=== PATIENT | female | born 1950 | race Caucasian/White ===

== ENCOUNTER 2016-10-31 20:22 | Emergency (ER) | payer OTHER ==
[2016-10-31 20:49] VITALS: BP 138/83
[2016-10-31] MEDS ORDERED: DOXYcycline CAP(*) 100 MG PO ONE (20:59)
[2016-10-31] MEDS ORDERED: Tetan/Diph/Pertus SYR(Tdap)* 0.5 ML SYR(BOOSTRIX) use SYR IM ONE (20:59)
--- NOTE | 2016-10-31 21:09 | UC ---
Bite Injury/Animal HPI - HPI Summary HPI Summary: PT WAS BRINGING NEIGHBOURS DOG BACK TO THE NEIGHBOURS HOUSE AFTER TAKING HIM FOR A WALK AROUND 3:15PM TODAY WHEN THE NEIGHBOURS CAT LUNGED AT HER LEG AND BIT HER. UNPROVOKED ATTACK. THIS CAT HAS BEEN KNOWN TO BITE WITHOUT PROVOCATION. UNKNOWN VACCINATION STATUS. LAST TETANUS MAYBE AROUND 2007 BUT NOT SURE. - History of Current Complaint Chief Complaint: UCBiteInjury Stated Complaint: CAT BITE Time Seen by Provider: 10/31/16 20:31 Hx Obtained From: Patient Severity Currently: Mild Severity Initially: Mild Pain Intensity: 0 Pain Scale Used: 0-10 Numeric Onset/Duration: Sudden Onset, Lasting Hours, Still Present Type of Bite: Animal Has Animal Been Immunized?: Unknown Character: Puncture Aggravating Factor(s): Nothing Alleviating Factor(s): Nothing Associated Signs And Symptoms: Positive: Negative Hx of Bite: Unprovoked Animal Available for Observation: Yes Animal Control Notified: Yes - Allergies/Home Medications Allergies/Adverse Reactions: Allergies Allergy/AdvReac Type Severity Reaction Status Date / Time Sulfa Drugs Allergy Severe See Comment Verified 10/31/16 20:37 Amoxicillin Allergy Intermediate Rash Verified 10/31/16 20:37 Lamotrigine [From Lamictal] Allergy Intermediate Unknown Verified 10/31/16 20:37 Reaction Details Oxycodone [From Percocet] Allergy Intermediate Rash Verified 10/31/16 20:37 Risperidone [From Risperdal] Allergy Intermediate Unknown Verified 10/31/16 20: 37 Reaction Details Topiramate [From Topamax] Allergy Intermediate Nausea Verified 10/31/16 20:37 Nitrofurantoin Allergy Abdominal Verified 10/31/16 20:37 [From Macrobid] Pain Scopolamine Allergy Unknown Verified 10/31/16 20:37 Reaction Details PMH/Surg Hx/FS Hx/Imm Hx Endocrine History Of: Reports: Thyroid Disease, Hypothyroidism Denies: Diabetes Cardiovascular History Of: Reports: Cardiac Disorders - leaky valve and murmur Denies: Hypertension Respiratory History Of: Reports: Asthma - NO current meds, Bronchitis - Hx OF YEARS AGO Denies: COPD GI/ History Of: Denies: Ulcer Neurological History Of: Reports: Seizures - 2009, WAS EVALUATED , NO SEIZURES, Sx R/T EAR PROBLEM, Migraine - Hx OF 1-2 PER YR, USES OTC Psychological History Of: Reports: Anxiety, Depression Cancer History Of: Denies: Breast Cancer - Surgical History Surgical History: Yes Surgery Procedure, Year, and Place: 2008 Hysterectomy. Graves Disease. 1996 Thyroidectomy - Family History Known Family History: Positive: Hypertension - Social History Alcohol Use: None Substance Use Type: None Smoking Status (MU): Never Smoked Tobacco Have You Smoked in the Last Year: No - Immunization History Most Recent Tetanus Shot: Pt unsure Review of Systems Constitutional: Negative Skin: Other - CAT BITE LEFT LEG Respiratory: Negative Cardiovascular: Negative Gastrointestinal: Negative All Other Systems Reviewed And Are Negative: Yes Physical Exam Triage Information Reviewed: Yes Appearance: Well-Appearing, No Pain Distress, Well-Nourished Vital Signs: Initial Vital Signs Temp 99.5 F 10/31/16 20:40 Pulse 74 10/31/16 20:40 Resp 16 10/31/16 20:40 BP 138/83 10/31/16 20:40 Pulse Ox 98 10/31/16 20:40 Vital Signs Reviewed: Yes Eyes: Positive: Conjunctiva Clear ENT: Positive: Hearing grossly normal Neck: Positive: Supple Respiratory: Positive: No respiratory distress, No accessory muscle use Cardiovascular: Positive: Pulses Normal Abdomen Description: Positive: Soft Musculoskeletal: Positive: No Edema Neurological: Positive: Alert Psychological: Positive: Age Appropriate Behavior Skin: Negative: rashes Bite Injury Course/Dx - Differential Dx/Diagnosis Provider Diagnoses: 1. CAT BITE - LEFT LEG. 2. TDAP BOOSTER Discharge - Discharge Plan Condition: Stable Disposition: HOME Prescriptions: Doxycycline (Monohydrate) [Doxycycline Monohydrate] 1 cap PO BID #19 cap Patient Education Materials: Animal Bite (ED) Referrals: Dheeraj Alejandra MD [Primary Care Provider] - If Needed Additional Instructions: THE HEALTH DEPARTMENT WILL FOLLOW-UP ON VACCINATION STATUS OF THE ANIMAL AND ADVISE ON IF RABIES VACCINATION IS WARRANTED.
== END 2016-10-31 21:15 | disposition home or self-care (01) ==
LOC: UCEAST 20:22
DX: S81.852A Open bite, left lower leg, initial encounter (principal); W55.01XA Bitten by cat, initial encounter; Z88.3 Allergy status to other anti-infective agents; Z88.5 Allergy status to narcotic agent; Z88.2 Allergy status to sulfonamides; E03.9 Hypothyroidism, unspecified; R01.1 Cardiac murmur, unspecified; R56.9 Unspecified convulsions; F41.9 Anxiety disorder, unspecified; F32.9 Major depressive disorder, single episode, unspecified; J45.909 Unspecified asthma, uncomplicated
CPT/HCPCS: 90471; 90715; 99212; A9270-GY; G0463

== ENCOUNTER 2017-04-23 05:34 | Emergency (ER) | payer OTHER ==
[2017-04-23 06:45] LABS: Hematocrit 40 % (35-47); Hemoglobin 13.3 g/dl (12.0-16.0); Mean Corpuscular HGB Conc 34 g/dl (31-36); Mean Corpuscular Hemoglobin 31 pg (27-31); Mean Corpuscular Volume 93 fL (80-97); Mean Platelet Volume 9 um3 (7.4-10.4); Red Blood Count 4.29 10^6/ul (4.0-5.4); Red Cell Distribution Width 13 % (10.5-15); White Blood Count 6.4 10^3/ul (3.5-10.8)
--- NOTE | 2017-04-23 07:00 | ED ---
Janel Salinas Edward, scribed for Marcela Benítez MD on 04/23/17 at 0548 . Palpitations / Dysrhythmia - HPI Summary HPI Summary: 66 y/o female presents to the ED c/o palpitations characterized as pounding for the past day or two. The pt was unable to sleep due to the palpitations last night. The symptoms are not alleviated by anything. Pt states she has had constant anxiety for the past 3-4 weeks. Denies CP, N/V, diaphoresis. Non smoker , no EtOH. - History of Current Complaint Chief Complaint: EDDysrhythmPalp Hx Obtained From: Patient Onset/Duration: Lasting Days Character: Pounding Aggravating: Other - anxiety Alleviating: Nothing Associated Signs & Symptoms: Negative - Allergy/Home Medications Allergies/Adverse Reactions: Allergies Allergy/AdvReac Type Severity Reaction Status Date / Time Sulfa Drugs Allergy Severe See Comment Verified 04/23/17 05:41 Amoxicillin Allergy Intermediate Rash Verified 04/23/17 05:41 Lamotrigine [From Lamictal] Allergy Intermediate Unknown Verified 04/23/17 05:41 Reaction Details Oxycodone [From Percocet] Allergy Intermediate Rash Verified 04/23/17 05:41 Risperidone [From Risperdal] Allergy Intermediate Unknown Verified 04/23/17 05: 41 Reaction Details Topiramate [From Topamax] Allergy Intermediate Nausea Verified 04/23/17 05:41 Nitrofurantoin Allergy Abdominal Verified 04/23/17 05:41 [From Macrobid] Pain Scopolamine Allergy Unknown Verified 04/23/17 05:41 Reaction Details PMH/Surg Hx/FS Hx/Imm Hx Previously Healthy: No Endocrine/Hematology History: Reports: Hx Thyroid Disease Denies: Hx Diabetes Cardiovascular History: Reports: Hx Valvular Heart Disease - WAS EVALUATED, STATES MINIMAL Denies: Hx Hypertension Respiratory History: Reports: Hx Asthma - NO current meds, Hx Sleep Apnea - Cpap user; compliant Denies: Hx Chronic Obstructive Pulmonary Disease (COPD) GI History: Reports: Hx Gastroesophageal Reflux Disease - NO MEDS, WATCHES DIET , Hx Hiatal Hernia - NO MEDS Denies: Hx Ulcer History: Reports: Hx Kidney Infection - Hx OF 1980s Musculoskeletal History: Reports: Hx Tendonitis - ELBOW Denies: Hx Rheumatoid Arthritis, Hx Osteoporosis Comment Only: Hx Arthritis - OSTEOARTHRITIS Sensory History: Reports: Hx Cataracts - LEFT EYE Opthamlomology History: Reports: Hx Cataracts - LEFT EYE Neurological History: Reports: Hx Migraine - Hx OF 1-2 PER YR, USES OTC, Hx Seizures - 2009, WAS EVALUATED , NO SEIZURES, Sx R/T EAR PROBLEM, Other Neuro Impairments/Disorders - ADHD, ON MEDS Psychiatric History: Reports: Hx Anxiety, Hx Attention Deficit Hyperactivity Disorder, Hx Depression - Cancer History Hx Chemotherapy: No Hx Radiation Therapy: No - Surgical History Surgery Procedure, Year, and Place: 2008 Hysterectomy. Graves Disease. 1996 Thyroidectomy Hx Anesthesia Reactions: Yes - 1996 WOKE UP HALLUCINATING, CONFUSED Infectious Disease History: No Infectious Disease History: Denies: Hx Hepatitis, Hx Human Immunodeficiency Virus (HIV), History Other Infectious Disease, Traveled Outside the [place] in Last 30 Days - Family History Known Family History: Positive: Hypertension - Social History Alcohol Use: None Substance Use Type: Reports: None Smoking Status (MU): Never Smoked Tobacco Have You Smoked in the Last Year: No Review of Systems Constitutional: Negative Eyes: Negative ENT: Negative Positive: Palpitations Respiratory: Negative Gastrointestinal: Negative Genitourinary: Negative Musculoskeletal: Negative Skin: Negative Neurological: Negative Positive: Anxious All Other Systems Reviewed And Are Negative: No Physical Exam - Summary Physical Exam Summary: Appearance: Alert, conversive, nontoxic appearing Skin: Warm, dry, no mottling, no rashes, no contusions HEENT: EOMI, PERRL, moist mucous membranes Neck: No masses on the neck, supple Respiratory: Clear to auscultation, breath sounds present, no rales, no rhonchi , no wheezes Cardiovascular: RRR, pulses are symmetrical in both lower and upper extremities Abdomen: Soft, non-tender Bowel Sounds: Present Musculoskeletal: No CVA tenderness, no obvious deformity, moving all extremities in a grossly normal manner Neurological: A&Ox3, CN II-XII Intact, moving all extremities symmetrically Psychiatric: Normal affect and mood Triage Information Reviewed: Yes Vital Signs On Initial Exam: Initial Vitals Temp Pulse Resp BP Pulse Ox 98.1 F 88 20 190/100 99 04/23/17 05:36 04/23/17 05:36 04/23/17 05:36 04/23/17 05:36 04/23/17 05:36 Vital Signs Reviewed: Yes Diagnostics - Vital Signs Vital Signs Temp Pulse Resp BP Pulse Ox 04/23/17 05:36 98.1 F 88 20 190/100 99 - Laboratory Lab Results: Lab Results 04/23/17 Range/Units 06:23 WBC 6.4 (3.5-10.8) 10^3/ul RBC 4.29 (4.0-5.4) 10^6/ul Hgb 13.3 (12.0-16.0) g/dl Hct 40 (35-47) % MCV 93 (80-97) fL MCH 31 (27-31) pg MCHC 34 (31-36) g/dl RDW 13 (10.5-15) % Plt Count 259 (150-450) 10^3/ul MPV 9 (7.4-10.4) um3 Neut % (Auto) 51.5 (38-83) % Lymph % (Auto) 32.7 (25-47) % Polk % (Auto) 10.7 H (1-9) % Eos % (Auto) 4.1 (0-6) % Baso % (Auto) 1.0 (0-2) % Absolute Neuts (auto) 3.3 (1.5-7.7) 10^3/ul Absolute Lymphs (auto) 2.1 (1.0-4.8) 10^3/ul Absolute Monos (auto) 0.7 (0-0.8) 10^3/ul Absolute Eos (auto) 0.3 (0-0.6) 10^3/ul Absolute Basos (auto) 0.1 (0-0.2) 10^3/ul Absolute Nucleated RBC 0 10^3/ul Nucleated RBC % 0 Result Diagrams: 04/23/17 06:23 Lab Statement: Any lab studies that have been ordered have been reviewed, and results considered in the medical decision making process. - EKG 1 EKG Interpretation: 06:15 - NSR @ 60 BPM. NORMAL AXIS. NO STEMI. Course/Dx - Course Assessment/Plan: 66 y/o female presents to the ED c/o palpitations characterized as pounding for the past day or two. The pt was unable to sleep due to the palpitations last night. The symptoms are not alleviated by anything. Pt states she has had constant anxiety for the past 3-4 weeks. Denies CP, N/V, diaphoresis. Non smoker, no EtOH. - Diagnoses Provider Diagnoses: Palpitations Discharge - Discharge Plan Condition: Stable Disposition: OTHER Discharge Disposition Comment: signed out ot Dr. Quezada Referrals: Dheeraj Alejandra MD [Primary Care Provider] - The documentation as recorded by the Janel barth Edward accurately reflects the service I personally performed and the decisions made by me, Marcela Benítez MD.
[2017-04-23 07:03] LABS: Albumin 4.4 g/dL (3.2-5.2); Calcium 9.4 mg/dL (8.6-10.3); EGFR African American 128.6 (>60); Globulin 2.5 g/dL (2-4); Magnesium 1.9 mg/dL (1.9-2.7); Potassium 3.4 mmol/L (3.5-5.0); Total Bilirubin 0.3 mg/dL (0.2-1.0); Total Protein 6.9 g/dL (6.4-8.9)
[2017-04-23] MEDS ORDERED: Potassium Chlor TAB* 20 MEQ TAB.ER PO ONE (07:35)
--- NOTE | 2017-04-23 08:11 | RAD ---
INDICATION: Palpitations. COMPARISON: Comparison is made with a prior chest x-ray study from November 09, 2008. TECHNIQUE: A portable view of the chest was obtained. FINDINGS: Cardiac and mediastinal contours appear to be within normal limits. The lungs are clear. No pleural effusion is seen. IMPRESSION: NO EVIDENCE FOR ACUTE DISEASE.
[2017-04-23 08:19] LABS: TSH (Thyroid Stimulating Horm) 2.23 mcIU/mL (0.34-5.60)
[2017-04-23 08:36] VITALS: BP 136/68
[2017-04-23 08:42] LABS: BUN/Creatinine Ratio 31.7 (8-20)
--- NOTE | 2017-04-23 15:45 | ED ---
Xavier Salinas Angela, scribed for Meredith Quezada MD on 04/23/17 at 0719 . Progress - Progress Note Progress Note: This pt was signed out by Dr. Benítez, pending disposition, awaiting TSH. TSH is WNL. Pt will be discharged to home in stable condition with a diagnosis of palpitations. - Results/Orders Results/Orders: Chest XR, per radiologist: IMPRESSION: No evidence for acute disease. ED physician has reviewed this radiology report and agrees. Re-Evaluation - Re-Evaluation First Eval Re-Evaluation Time: 08:36 Comment: I reviewed the chest XR and lab results with the pt. Pt will be discharged home. She is agreeable with this plan. Course/Dx - Diagnoses Provider Diagnoses: Palpitations The documentation as recorded by the Xavier barth Angela accurately reflects the service I personally performed and the decisions made by , Meredith Quezada MD.
== END 2017-04-23 09:02 | disposition home or self-care (01) ==
LOC: ED 05:34
DX: R00.2 Palpitations (principal); F41.9 Anxiety disorder, unspecified
CPT/HCPCS: 36415; 71010; 80053; 83735; 84443; 85025; 93005; 99283; A9270-GY

== ENCOUNTER 2017-11-07 07:16 | Emergency (ER) | payer MEDICARE ==
[2017-11-07 08:36] VITALS: BP 143/80
--- NOTE | 2017-11-07 08:41 | ED ---
Marah Salinas Julia, scribed for Luis Meadows on 11/07/17 at 0742 . Laceration/Wound HPI - HPI Summary HPI Summary: This patient is a 67 year old F presenting to [facility] with a chief complaint of a laceration to the right thumb from a "shaving razor". She states tetanus is utd , last occurring roughly four years ago. Patient has no hx of blood thinner use or diabetes. Patient has no other complaints. - History of Current Complaint Stated Complaint: RT THUMB LAC Hx Obtained From: Patient Mechanism of Injury: Sharp/Blunt Trauma Onset/Duration: Sudden Onset Current Severity: None Pain Intensity: 0 Pain Scale Used: 0-10 Numeric Associated Signs & Symptoms: Negative - Allergy/Home Medications Allergies/Adverse Reactions: Allergies Allergy/AdvReac Type Severity Reaction Status Date / Time amoxicillin Allergy Hives Verified 09/17/17 13:49 lamotrigine [From Lamictal] Allergy Rash Verified 09/17/17 13:49 meloxicam Allergy Difficulty Verified 09/17/17 13:49 Breathing nitrofurantoin Allergy Abdominal Verified 09/17/17 13:49 [From Macrobid] Pain oxycodone [From Percocet] Allergy Hives Verified 09/17/17 13:49 risperidone [From Risperdal] Allergy Unknown Verified 09/17/17 13:49 Reaction Details scopolamine Allergy Rash Verified 09/17/17 13:49 Sulfa (Sulfonamide Allergy Fever Verified 09/17/17 13:49 Antibiotics) topiramate [From Topamax] Allergy Nausea Verified 09/17/17 13:49 msg Allergy Difficulty Uncoded 09/17/17 13:49 Breathing wasps Allergy Swelling Uncoded 09/17/17 13:49 PMH/Surg Hx/FS Hx/Imm Hx Endocrine/Hematology History: Reports: Hx Thyroid Disease - Graves Denies: Hx Diabetes Cardiovascular History: Reports: Hx Valvular Heart Disease - WAS EVALUATED, STATES MINIMAL Denies: Hx Hypertension Respiratory History: Reports: Hx Asthma - NO current meds, Hx Sleep Apnea - Cpap user; compliant Denies: Hx Chronic Obstructive Pulmonary Disease (COPD) GI History: Reports: Hx Gastroesophageal Reflux Disease - NO MEDS, WATCHES DIET , Hx Hiatal Hernia - NO MEDS Denies: Hx Ulcer History: Reports: Hx Kidney Infection - Hx OF 1980s Musculoskeletal History: Reports: Hx Tendonitis - ELBOW Denies: Hx Rheumatoid Arthritis, Hx Osteoporosis Comment Only: Hx Arthritis - OSTEOARTHRITIS Sensory History: Reports: Hx Cataracts - LEFT EYE Opthamlomology History: Reports: Hx Cataracts - LEFT EYE Neurological History: Reports: Hx Migraine - Hx OF 1-2 PER YR, USES OTC, Hx Seizures - 2009, WAS EVALUATED , NO SEIZURES, Sx R/T EAR PROBLEM, Other Neuro Impairments/Disorders - ADHD, ON MEDS Psychiatric History: Reports: Hx Anxiety, Hx Attention Deficit Hyperactivity Disorder, Hx Depression - Cancer History Hx Chemotherapy: No Hx Radiation Therapy: No - Surgical History Surgery Procedure, Year, and Place: 2008 Hysterectomy. 1996 Thyroidectomy. dental implant 2016 Hx Anesthesia Reactions: Yes - 1996 WOKE UP HALLUCINATING, CONFUSED - Immunization History Date of Tetanus Vaccine: 4 YR Infectious Disease History: No Infectious Disease History: Denies: Hx Hepatitis, Hx Human Immunodeficiency Virus (HIV), History Other Infectious Disease, Traveled Outside the [place] in Last 30 Days - Family History Known Family History: Positive: Hypertension - Social History Occupation: Employed Full-time Alcohol Use: None Substance Use Type: Reports: None Smoking Status (MU): Never Smoked Tobacco Have You Smoked in the Last Year: No Review of Systems Negative: Fever Positive: Other - laceration to right thumb All Other Systems Reviewed And Are Negative: Yes Physical Exam - Summary Physical Exam Summary: Appearance: Well appearing, no pain distress Skin: warm, dry, reflects adequate perfusion, laceration to the R plamar aspect of the distal phalanx, no active bleeding Head/face: normal Eyes: EOMI, MARK ENT: normal Neck: supple, non-tender Respiratory: CTA, breath sounds present Cardiovascular: RRR, pulses symmetrical Abdomen: non-tender, soft Bowel: present Musculoskeletal: normal, strength/ROM intact Neuro: normal, sensory motor intact, A&Ox3 Triage Information Reviewed: Yes Vital Signs On Initial Exam: Initial Vitals Temp Pulse Resp BP Pulse Ox 98.1 F 74 17 149/87 98 11/07/17 07:21 11/07/17 07:21 11/07/17 07:21 11/07/17 07:21 11/07/17 07:21 Vital Signs Reviewed: Yes Diagnostics - Vital Signs Vital Signs Temp Pulse Resp BP Pulse Ox 11/07/17 07:21 98.1 F 74 17 149/87 98 - Laboratory Lab Statement: Any lab studies that have been ordered have been reviewed, and results considered in the medical decision making process. Laceration Repair Course/Dx - Course Course Of Treatment: 67 year old F presenting to [facility] with a chief complaint of a laceration to the right thumb from a "shaving razor". She states tetanus is utd, last occurring roughly four years ago. Patient has no hx of blood thinner use or diabetes. Patient has no other complaints. There is no active bleeding. There is no need to suture laceration. Laceration is cleaned with an alcohol wipe and covered. Patient instructed to keep wound covered and dry. - Clinical Impression Provider Diagnoses: Laceration of right thumb Discharge - Sign-Out/Discharge Documenting (check all that apply): Discharge/Admit/Transfer - Discharge Plan Condition: Stable Disposition: HOME Patient Education Materials: Laceration (ED) Referrals: Dheeraj Alejandra MD [Primary Care Provider] - If Needed (Follow up with your primary physician if needed. ) - Billing Disposition and Condition Condition: STABLE Disposition: HOME The documentation as recorded by the Marah barth Julia accurately reflects the service I personally performed and the decisions made by Dori card Emmanuel.
== END 2017-11-07 08:33 | disposition home or self-care (01) ==
LOC: ED 07:16
DX: S61.011A Laceration without foreign body of right thumb without damage to nail, initial encounter (principal); W26.8XXA Contact with other sharp object(s), not elsewhere classified, initial encounter; Y93.9 Activity, unspecified; Y92.9 Unspecified place or not applicable; E05.00 Thyrotoxicosis with diffuse goiter without thyrotoxic crisis or storm; I35.9 Nonrheumatic aortic valve disorder, unspecified; K21.9 Gastro-esophageal reflux disease without esophagitis; K44.9 Diaphragmatic hernia without obstruction or gangrene; G43.909 Migraine, unspecified, not intractable, without status migrainosus; F90.9 Attention-deficit hyperactivity disorder, unspecified type; F41.9 Anxiety disorder, unspecified; F32.9 Major depressive disorder, single episode, unspecified; Z88.5 Allergy status to narcotic agent; Z88.0 Allergy status to penicillin; Z88.2 Allergy status to sulfonamides; Z88.8 Allergy status to other drugs, medicaments and biological substances; Z88.1 Allergy status to other antibiotic agents; Z91.030 Bee allergy status
CPT/HCPCS: 99281

== ENCOUNTER 2017-12-05 14:27 | Emergency (ER) | payer MEDICARE, OTHER ==
[2017-12-05 14:57] VITALS: BP 150/90
[2017-12-05] MEDS ORDERED: Fluorescein Sod TOPICAL 0.6* 0.6 MG TEST OPHTHALMIC ONE ×2 (15:18→15:19)
[2017-12-05] MEDS ORDERED: BSS OPTH.SOL* BTL ONE (15:19)
[2017-12-05] MEDS ORDERED: Tetracaine 0.5% OPTH.SOL 4 ML* 1 DROP BTL LEFT EYE ONE (15:19)
[2017-12-05] MEDS ORDERED: Tetracaine 0.5% OPTH.SOL 4 ML* 1 DROP BTL ONE (15:19)
--- NOTE | 2017-12-05 15:29 | UC ---
Eye Complaint HPI - HPI Summary HPI Summary: 67 year old female with history of HTN here after she scrapped her left eye with a glove that contained dried paint. She reports she washed her face and irrigated right afterwards. Denies any change in vision. She noticed white spot on her iris, prompting her to come to the ED. No other complaints. - History of Current Complaint Chief Complaint: UCEye Stated Complaint: EYE COMPLAINT Time Seen by Provider: 12/05/17 15:06 Onset/Duration: Sudden Onset Severity Initially: Mild Severity Currently: None Pain Intensity: 0 Aggravating Factor(s): Nothing Associated Signs And Symptoms: Positive: Negative - Allergies/Home Medications Allergies/Adverse Reactions: Allergies Allergy/AdvReac Type Severity Reaction Status Date / Time amoxicillin Allergy Hives Verified 12/05/17 14:57 lamotrigine [From Lamictal] Allergy Rash Verified 12/05/17 14:57 meloxicam Allergy Difficulty Verified 12/05/17 14:57 Breathing nitrofurantoin Allergy Abdominal Verified 12/05/17 14:57 [From Macrobid] Pain oxycodone [From Percocet] Allergy Hives Verified 12/05/17 14:57 risperidone [From Risperdal] Allergy Unknown Verified 12/05/17 14:57 Reaction Details scopolamine Allergy Rash Verified 12/05/17 14:57 Sulfa (Sulfonamide Allergy Fever Verified 12/05/17 14:57 Antibiotics) topiramate [From Topamax] Allergy Nausea Verified 12/05/17 14:57 msg Allergy Difficulty Uncoded 12/05/17 14:57 Breathing wasps Allergy Swelling Uncoded 12/05/17 14:57 PMH/Surg Hx/FS Hx/Imm Hx Previously Healthy: No Cardiovascular History: Hypertension - Surgical History Surgical History: Yes Surgery Procedure, Year, and Place: 2008 Hysterectomy. 1996 Thyroidectomy. dental implant 2016 - Family History Known Family History: Positive: Hypertension - Social History Alcohol Use: None Substance Use Type: None Smoking Status (MU): Never Smoked Tobacco Have You Smoked in the Last Year: No - Immunization History Most Recent Tetanus Shot: less then 10 yrs Review of Systems Constitutional: Negative Skin: Negative Eyes: Other - white spot ENT: Negative Respiratory: Negative Cardiovascular: Negative Gastrointestinal: Negative Genitourinary: Negative Motor: Negative Neurovascular: Negative Musculoskeletal: Negative Neurological: Negative Psychological: Negative All Other Systems Reviewed And Are Negative: Yes Physical Exam Triage Information Reviewed: Yes Appearance: Well-Appearing, No Pain Distress, Well-Nourished Vital Signs: Initial Vital Signs Temp 36.6 C 12/05/17 14:53 Pulse 84 12/05/17 14:53 Resp 12 12/05/17 14:53 BP 150/90 12/05/17 14:53 Pulse Ox 100 12/05/17 14:53 Eye Exam: Normal Eyes: Positive: Conjunctiva Clear, Other: - no obvious lesions visualized [place] exam negative for any uptake ENT Exam: Normal Dental Exam: Normal Respiratory Exam: Normal Cardiovascular Exam: Normal Skin Exam: Normal Eye Complaint Course/Dx - Differential Dx/Diagnosis Differential Diagnosis/HQI/PQRI: Conjunctivitis, Corneal Abrasion, Other Provider Diagnoses: Eye irritation Discharge - Sign-Out/Discharge Documenting (check all that apply): Discharge/Admit/Transfer - Discharge Plan Condition: Good Disposition: HOME Patient Education Materials: Eye Pain (ED) Referrals: Dheeraj Alejandra MD [Primary Care Provider] - - Billing Disposition and Condition Condition: GOOD Disposition: Home
== END 2017-12-05 16:05 | disposition home or self-care (01) ==
LOC: UCEAST 14:27
DX: H57.8 Other specified disorders of eye and adnexa (principal); I10 Essential (primary) hypertension; Z88.0 Allergy status to penicillin; Z88.8 Allergy status to other drugs, medicaments and biological substances; Z88.6 Allergy status to analgesic agent; Z88.1 Allergy status to other antibiotic agents; Z88.5 Allergy status to narcotic agent; Z88.2 Allergy status to sulfonamides; Z91.038 Other insect allergy status
CPT/HCPCS: 99211; A9270-GY; G0463

== ENCOUNTER 2018-09-21 11:06 | Emergency (ER) | payer MEDICARE ==
[2018-09-21 11:20] VITALS: BP 152/88
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
== END 2018-09-21 12:38 | disposition home or self-care (01) ==
LOC: UCEAST 11:06
DX: S09.90XA Unspecified injury of head, initial encounter (principal); F90.9 Attention-deficit hyperactivity disorder, unspecified type; Z91.09 Other allergy status, other than to drugs and biological substances; Z88.2 Allergy status to sulfonamides; Z88.0 Allergy status to penicillin; Z88.5 Allergy status to narcotic agent; Z88.8 Allergy status to other drugs, medicaments and biological substances; W22.8XXA Striking against or struck by other objects, initial encounter; Y92.9 Unspecified place or not applicable
CPT/HCPCS: 70450; 99211; G0463

== ENCOUNTER 2019-03-14 14:47 | Emergency (ER) | payer MEDICARE, OTHER ==
[2019-03-14 15:05] VITALS: BP 173/92
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
== END 2019-03-14 15:52 | disposition home or self-care (01) ==
LOC: UCEAST 14:47
DX: T22.111A Burn of first degree of right forearm, initial encounter (principal); Z88.0 Allergy status to penicillin; Z88.1 Allergy status to other antibiotic agents; Z88.5 Allergy status to narcotic agent; Z88.8 Allergy status to other drugs, medicaments and biological substances; Z88.2 Allergy status to sulfonamides; Z91.09 Other allergy status, other than to drugs and biological substances; F90.9 Attention-deficit hyperactivity disorder, unspecified type; X15.0XXA Contact with hot stove (kitchen), initial encounter; Y92.9 Unspecified place or not applicable
CPT/HCPCS: 99212; G0463